=== PATIENT | male | born 1975 | race Caucasian/White ===

== ENCOUNTER 2020-10-25 02:35 | Emergency (ER) | payer OTHER ==
[~2020-10-25 02:35] MED LIST: CLEOCIN HCL300 MG PO; CLINDAMYCIN HC300 MG PO; IBUPROFEN600 MG PO; NAPROSYN500 MG PO
[2020-10-25] MEDS ORDERED: CYCLOBENZAPRINE10 MG PO (03:17)
[2020-10-25] MEDS ORDERED: IBUPROFEN800 MG PO (03:17)
== END 2020-10-25 04:35 | disposition home or self-care (01) ==
LOC: ER1 02:35
DX: S46.911A Strain of unspecified muscle, fascia and tendon at shoulder and upper arm level, right arm, initial encounter (principal); F17.210 Nicotine dependence, cigarettes, uncomplicated; I10 Essential (primary) hypertension; K21.9 Gastro-esophageal reflux disease without esophagitis; Z88.8 Allergy status to other drugs, medicaments and biological substances; X50.9XXA Other and unspecified overexertion or strenuous movements or postures, initial encounter; Y92.89 Other specified places as the place of occurrence of the external cause; Y99.0 Civilian activity done for income or pay
CPT/HCPCS: 72070; 73030; 96372; 99283; J1885

== ENCOUNTER → 2020-12-21 | Outpatient (CLI) | payer OTHER ==
[~2020-12-21] MED LIST changes: +CYCLOBENZAPRINE10 MG PO; +IBUPROFEN800 MG PO
== END ==
LOC: KOH-I 10:35
DX: M25.561 Pain in right knee (principal); M25.461 Effusion, right knee; M17.11 Unilateral primary osteoarthritis, right knee
CPT/HCPCS: 73564

== ENCOUNTER 2021-07-02 15:34 | Inpatient (IN) | payer OTHER ==
[~2021-07-02] VITALS: Ht 175.3 cm; Wt 72.6 kg
[2021-07-02 17:58] LABS: RED BLOOD COUNT 3.71 M/UL (4.20-5.50); WHITE BLOOD COUNT 26.2 K/UL (4.5-11.0)
[2021-07-02 18:30] LABS: BUN/CREATININE RATIO 23 (0-10)
[2021-07-03] MEDS ORDERED: ZESTRIL40 MG PO (02:33)
[2021-07-03] MEDS ORDERED: NORVASC5 MG PO (02:33)
[2021-07-03] MEDS ORDERED: NEURONTIN800 MG PO (02:34)
[2021-07-03] MEDS ORDERED: GABAPENTIN400 MG PO (02:35)
[2021-07-03] MEDS ORDERED: PROTONIX40 MG PO (02:51)
[2021-07-03] MEDS ORDERED: WELLBUTRIN XL300 M1 PO (02:52)
[2021-07-03] MEDS ORDERED: CLARITIN10 M2 PO (02:52)
[2021-07-03] MEDS ORDERED: SUBLOCADE SC (03:02)
[2021-07-03 06:24] LABS: HEMOGLOBIN 10.6 gm/dl (14.0-17.5); RED BLOOD COUNT 3.55 M/UL (4.20-5.50)
[2021-07-03 06:33] LABS: WHITE BLOOD COUNT 17.5 K/UL (4.5-11.0)
[2021-07-03 13:03] LABS: CANDIDA ALBICANS Not Detected (Negative); CANDIDA KRUSEI Not Detected (Negative); CANDIDA TROPICALIS Not Detected (Negative); ESCHERICHIA COLI Not Detected (Negative); HAEMOPHILUS INFLUENZAE Not Detected (Negative); KLEBSIELLA OXYTOCA Not Detected (Negative); KLEBSIELLA PNEUMONIAE Not Detected (Negative); KPC-CARBAPENEM-RESISTANCE GENE Not Detected (Negative); PROTEUS Not Detected (Negative); PSEUDOMONAS AERUGINOSA Not Detected (Negative); SERRATIA MARCESANS Not Detected (Negative); STAPHYLOCOCCUS Not Detected (Negative); STAPHYLOCOCCUS AUREUS Not Detected (Negative); STREP AGALACTIAE (GROUP B) Not Detected (Negative); STREP PYOGENES (GROUP A) Not Detected (Negative); vanA/B (VANCOMYCIN RESIST GENE Not Detected (Negative)
[2021-07-03 13:04] LABS: STREPTOCOCCUS DETECTED (Negative)
[2021-07-03] MEDS ORDERED: IBUPROFEN800 MG PO (14:13)
[2021-07-03] MEDS ORDERED: SERTRALINE HCL50 MG PO (14:14)
[2021-07-03] MEDS ORDERED: THERA-M TABLET1 EACH PO (14:15)
[2021-07-04 02:41] LABS: BUN/CREATININE RATIO 33 (0-10)
[2021-07-05 06:08] LABS: BUN/CREATININE RATIO 19 (0-10)
[2021-07-05] MEDS ORDERED: OMNICEF 300 MG300 MG PO (09:45)
[2021-07-05 10:07] LABS: HEMOGLOBIN 10.3 gm/dl (14.0-17.5); RED BLOOD COUNT 3.46 M/UL (4.20-5.50)
== END 2021-07-05 16:28 | disposition home or self-care (01) | DRG 871 ==
LOC: ER1 15:34 → CDU 20:55 → PROG CARE 20:55
PROVIDERS: Family Medicine; Internal Medicine; ADMIT Internal Medicine
DX: A41.9 Sepsis, unspecified organism (principal); R65.21 Severe sepsis with septic shock; J18.9 Pneumonia, unspecified organism; N17.9 Acute kidney failure, unspecified; E87.1 Hypo-osmolality and hyponatremia; R07.89 Other chest pain; Z20.822 Contact with and (suspected) exposure to COVID-19; F17.210 Nicotine dependence, cigarettes, uncomplicated; G89.29 Other chronic pain; B18.2 Chronic viral hepatitis C; N40.0 Benign prostatic hyperplasia without lower urinary tract symptoms; I10 Essential (primary) hypertension; Z90.49 Acquired absence of other specified parts of digestive tract; Z98.890 Other specified postprocedural states; Z88.5 Allergy status to narcotic agent; Z80.1 Family history of malignant neoplasm of trachea, bronchus and lung; Z79.899 Other long term (current) drug therapy
CPT/HCPCS: 36415; 71045; 71250; 80048; 80053; 80202; 81001; 82550; 82553; 82570; 83605; 83880; 84300; 84484; 85025; 85379; 85610; 87040; 87070; 87077; 87081; 87150; 87186; 87205; 89050; 93005; 94760; 96365; 96366; 96367; 96372; 99285; G0378; J0456; J0692; J1644; J1650; J2543; J3370; J7030; J7070; Q9967; U0002

== ENCOUNTER 2021-09-11 10:16 | Emergency (ER) | payer OTHER ==
[~2021-09-11 10:16] MED LIST changes: +CLARITIN10 M2 PO; +GABAPENTIN400 MG PO; +NEURONTIN800 MG PO; +NORVASC5 MG PO; +OMNICEF 300 MG300 MG PO; +PROTONIX40 MG PO; +SERTRALINE HCL50 MG PO; +SUBLOCADE SC; +THERA-M TABLET1 EACH PO; +WELLBUTRIN XL300 M1 PO; +ZESTRIL40 MG PO
[2021-09-11 11:32] LABS: HEMOGLOBIN 14.1 gm/dl (14.0-17.5); RED BLOOD COUNT 4.6 M/UL (4.20-5.50); WHITE BLOOD COUNT 6.9 K/UL (4.5-11.0)
[2021-09-11 11:51] LABS: BUN/CREATININE RATIO 20 (0-10)
== END 2021-09-11 13:25 | disposition home or self-care (01) ==
LOC: ER1 10:16
PROVIDERS: Nurse Practitioner
DX: Z71.1 Person with feared health complaint in whom no diagnosis is made (principal); I10 Essential (primary) hypertension; F17.210 Nicotine dependence, cigarettes, uncomplicated
CPT/HCPCS: 80053; 85025; 99283